=== PATIENT | female | born 1970 | race Caucasian/White ===

== ENCOUNTER → 2018-01-28 | Outpatient (CLI) | payer BC ==
[~2018-01-28] MED LIST: CELEXA20 MG PO; LEXAPRO5 MG PO; ORTHO-CYCLEN 351 TA1 PO; PEPCID40 MG PO; ZOFRAN4 M1 PO
== END ==
LOC: MC.RAD 10:51
DX: Z12.31 Encounter for screening mammogram for malignant neoplasm of breast (principal)

== ENCOUNTER → 2021-12-14 | Outpatient (CLI) | payer BC | LOC: MC.RAD 12:46 | DX: N63.21 Unspecified lump in the left breast, upper outer quadrant (principal) ==

== ENCOUNTER → 2022-06-16 | Outpatient (CLI) | payer BC | LOC: MC.RAD 10:00 | DX: N63.21 Unspecified lump in the left breast, upper outer quadrant (principal) ==

== ENCOUNTER 2023-03-29 11:09 | Emergency (ER) | payer BC ==
[~2023-03-29] VITALS: Ht 162.6 cm; Wt 79.1 kg
[2023-03-29 11:37] VITALS: BP 112/74; TEMP 98.4
[2023-03-29 12:01] LABS: COLLECTION METHOD CLEAN CATCH
[2023-03-29 12:15] LABS: PH 5.5 (5.0-8.5); URINE APPEARANCE CLEAR (CLEAR/HAZY); URINE BLOOD 2+ (NEGATIVE); URINE COLOR YELLOW (YELLOW); URINE GLUCOSE NEGATIVE (NEGATIVE); URINE KETONE 4+ (NEGATIVE); URINE NITRATE NEGATIVE (NEGATIVE); URINE PROTEIN(semi-quant) NEGATIVE (NEGATIVE); URINE UROBILINOGEN 0.2 E.U/dL (0.2-1.0)
[2023-03-29] MEDS ORDERED: Ketorolac 30 MG/ML VIAL IV ONE (12:15)
[2023-03-29 12:25] LABS: HEMATOCRIT 42.6 % (37.0-47.0); MEAN CELL VOLUME 87 fl (80.0-100.0); MEAN CORPUSCULAR HEMOGLOBIN 29 pg (27-31); MEAN CORPUSCULAR HGB CONC 33 g/dl (33.0-37.0); MEAN PLATELET VOLUME 11.4 fl (7.4-10.4); PLATELET COUNT 255 K/mm3 (130-400); REDCELL DISTRIBUTION WIDTH-CV 13.9 % (11.5-14.5)
[2023-03-29 12:43] LABS: ALBUMIN 4.1 gm/dL (3.5-5.0); BILIRUBIN,TOTAL 0.6 mg/dL (0.2-1.2); C-REACTIVE PROTEIN 8.76 mg/dL (0.00-0.50); CALCIUM 9.7 mg/dL (8.4-10.2); CREATININE, serum 0.81 mg/dL (0.57-1.11); POTASSIUM 3.9 mmol/L (3.5-4.5); TOTAL PROTEIN 7.6 gm/dL (6.2-8.1)
[2023-03-29 12:52] LABS: BAND 7 % (0-10); LYMPHOCYTE 9 % (20.0-51.0); NEUTROPHILS 79 % (42.0-75.2); PLATELET ESTIMATE NORMAL (NORMAL)
[2023-03-29] MEDS ORDERED: Iohexol 300 - 100 ML VIAL IV ONE (13:21)
[2023-03-29] MEDS ORDERED: NS 100 ML IV SCH (13:22)
[2023-03-29] MEDS ORDERED: AMOXICILLIN 8751 TAB PO (13:58)
[2023-03-29] MEDS ORDERED: NORCO 325 MG-51 TAB PO (13:59)
[2023-03-29] MEDS ORDERED: FLAGYL500 MG PO (14:07)
[2023-03-29] MEDS ORDERED: CIPRO 500MG TA500 MG PO (14:07)
[2023-03-29 14:15] VITALS: PULSE 91
== END 2023-03-29 14:15 | disposition home or self-care (01) ==
LOC: COL.ER 11:09
PROVIDERS: Physician Assistant
DX: K57.32 Diverticulitis of large intestine without perforation or abscess without bleeding (principal)
CPT/HCPCS: J1885; Q9967

== ENCOUNTER → 2023-04-23 | Outpatient (CLI) | payer BC ==
[~2023-04-23] MED LIST changes: +AMOXICILLIN 8751 TAB PO; +CIPRO 500MG TA500 MG PO; +FLAGYL500 MG PO; +NORCO 325 MG-51 TAB PO
== END ==
LOC: MC.RAD 11:00
DX: N63.20 Unspecified lump in the left breast, unspecified quadrant (principal)